=== PATIENT | male | born 1995 | race African-American/Black ===

== ENCOUNTER 2020-07-23 19:25 | Emergency (ER) | payer OTHER ==
[~2020-07-23] VITALS: Ht 182.9 cm; Wt 83.9 kg
--- NOTE | 2020-07-23 19:45 | NUR ---
ED Nurse Note: Patient walked into the ED with c/o right earpain onset 07/21. Pt stated he cant hear on the right ear with pressure and sharp pulsating pain. Pt took advil, tylenol and eardrops but with no relief. Denies injury/trauma, no discharge. Patient is AAOX4 and ambulatory. VSS as documented. Pt reports pain is an 8/10.
[2020-07-23] MEDS ORDERED: EAR WAX DROPS15 M1 OT (19:51)
[2020-07-23] MEDS ORDERED: IBUPROFEN600 M1 ORAL (19:51)
[2020-07-23] MEDS ORDERED: AUGMENTIN 875-1 EAC1 ORAL (19:51)
--- NOTE | 2020-07-23 19:55 | Emergency Room Report ---
History of Present Illness General Chief Complaint: Earache Source: Patient Present Illness HPI Patient is a 24-year-old male denies any significant past medical history presents to the ER complaining of right-sided earache for 3 days. He states that it feels painful and he has decreased hearing. He states that he tried a home earwax kit that did not work. He denies any fever or chills. He states that he took some Tylenol Motrin yesterday which helped the pain temporarily. Allergies: Coded Allergies: No Known Allergies (Unverified , 07/23/20) COVID-19 Screening Contact w/high risk pt: No Experienced COVID-19 symptoms?: No COVID-19 Testing performed [employer]ITER[employer] PROFESSOR: No COVID-19 Screening: Negative COVID-19 COVID-19 Testing Source: [facility] Patient History Reviewed Nursing Documentation: PMH: Agreed; PSxH: Agreed Nursing Documentation-PMH Past Medical History: No Stated History Review of Systems All Other Systems: negative except mentioned in HPI Physical Exam Vital Signs Date Time Temp Pulse Resp B/P (MAP) Pulse Ox O2 Delivery O2 Flow Rate FiO2 07/23/20 19:34 98.4 86 20 135/78 (97) 98 Room Air Sp02 EP Interpretation: reviewed, normal General Appearance: no apparent distress, alert, GCS 15, non-toxic Head: normocephalic, atraumatic Eyes: bilateral eye normal inspection, bilateral eye PERRL ENT: hearing grossly normal, normal pharynx, no angioedema, normal voice, other - Right sided cerumen impaction underlying erythema of the TM no perforation or effusion Neck: full range of motion, supple, no meningismus Respiratory: lungs clear, no respiratory distress Cardiovascular #1: regular rate, rhythm Gastrointestinal: non tender, soft, no guarding, no rebound Rectal: deferred Musculoskeletal: normal range of motion Neurologic: renewal specialist III-XII nml as tested, oriented x3 Psychiatric: no suicidal/homicidal ideation Skin: no rash Lymphatic: no adenopathy Medical Decision Making Diagnostic Impression: Primary Impression: Impacted cerumen Additional Impression: Otitis media ER Course Cerumen impaction treated with hydrogen peroxide and saline flushes. Patient given Augmentin. After discussing risks and benefits of further diagnostics, treatment plans, as well as indications for and risks of admission, the patient is agreeable to being discharged home. I have explained that their evaluation and treatment in the emergency department today is an important step towards them achieving better health but that their evaluation today is not intended to replace further evaluation and treatment by a physician in their local clinic. I have explained that while the current findings suggest no immediate life threa tening emergency they will require further evaluation and treatment by a physician of their choice in their area. They understand that it will be necessary for them to review the final reports of their ED visit with their clinic physician. We have reviewed indications for return to the Emergency Department. I have explained that additional time may need to pass and/or additional testing as an outpatient may be necessary before a definitive diagnosis can be made. They tell me they are willing to follow up as instructed within the timeframe I recommend. They appear to understand what we discussed. Additionally they understand that if they are unable to be seen by an outpatient physician they are welcome, and in fact should, return to the Emergency Depart ment for a repeat evaluation. The patient is stable at time of discharge. Last Vital Signs Date Time Temp Pulse Resp B/P (MAP) Pulse Ox O2 Delivery O2 Flow Rate FiO2 07/23/20 19:34 98.4 86 20 135/78 (97) 98 Room Air Disposition: HOME, SELF-CARE Condition: Stable Scripts Carbamide Peroxide (EAR WAX DROPS) 15 Ml Drops 15 ML OT BID, #15 ML Prov: Shelli Parks M.D. 07/23/20 Ibuprofen* (MOTRIN*) 600 Mg Tablet 600 MG ORAL FOUR TIMES A DAY, #30 TAB 0 Refills Prov: Shelli Parks M.D. 07/23/20 Amoxicillin/Potassium Clav 875-125* (AUGMENTIN 875-125 TABLET*) 1 Each Tablet 1 TAB ORAL TWICE A DAY, #14 TAB Prov: Shelli Parks M.D. 07/23/20 [address]errals: [facility] Patient Instructions: Cerumen Impaction, Otitis Media, Adult, [id number] Additional Instructions: The patient was provided with discharge instructions, notified to follow-up with a primary care doctor and or specialist in the next 24-48 hours, and to return to the ED if they have worsening of their symptoms. Please note that this report is being documented using [employer] technology. This can lead to erroneous entry secondary to incorrect interpretation by the dictating instrument. Shelli Parks M.D. Jul 23, 2020 19:55
[2020-07-23] MEDS ORDERED: Augmentin 875mg Tab ORAL ONE (20:00)
[2020-07-23] MEDS ORDERED: Hydrogen Peroxide 473ml Bottle TOPIC ONE (20:00)
--- NOTE | 2020-07-23 20:00 | NUR ---
ED Nurse Note: Pt seen by doctor. Pt's ear flushed with peroxide as ordered, pt tolerated procedure well.
[2020-07-23 20:15] VITALS: BP 135/78
--- NOTE | 2020-07-23 20:25 | NUR ---
ER DISCHARGE NOTE: Patient is cleared to be discharged per ERMD, pt is aox4, on room air, with stable vital signs. pt was given dc and prescription instructions, pt was able to verbalize understanding, pt id band removed. pt is able to ambulate with steady gait. pt took all belongings.
== END 2020-07-23 22:00 | disposition home or self-care (01) ==
LOC: EMR 19:50
DX: H61.21 Impacted cerumen, right ear (principal); H66.91 Otitis media, unspecified, right ear
CPT/HCPCS: 99282